=== PATIENT | female | born 1955 | race Caucasian/White ===

== ENCOUNTER 2019-04-03 22:19 | Emergency (ER) | payer OTHER ==
--- NOTE | 2019-04-03 22:27 | ED Physician Documentation ---
Sore Throat/Dental Pain - HISTORIAN Historian: patient - HPI Stated Complaint: sore throat Chief Complaint: Sore Throat Onset: days ago (2) Context: Possible Infection Associated Symptoms: sore throat, moderate. denies: fever, chills, unable to swallow, runny nose, congestion, R ear pain, L ear pain, cough, swollen glands Worsened By: denies: heat, cold Further Comments: yes (SHe has had a sore throat for two days. She has not tried any OTC meds. No other complaints. NO sick contacts . No fever) - ROS CONST: no problems CVS/RESP: none GI/: denies: nausea, vomiting NEURO/PSYCH: none - PAST HX Past History: none Other History: diabetes Type 2 Immunizations: UTD - SOCIAL HX Smoking History: non-smoker Alcohol Use: none Drug Use: none - FAMILY HX Family History: No - REVIEWED ASSESSMENTS Nursing Assessment Reviewed: Yes Vitals Reviewed: Yes Sore throat Physical Exam - EXAM General Appearance: no acute distress, alert Head/Neck: head nml inspection. No: pain over sinuses Eyes: eyes nml inspection Mouth/Throat: lips nml, gums nml, pharynx nml, voice nml, no drooling, no air way problems Respiratory: no resp. distress, breath sounds nml CVS: reg. rate & rhythm Abdomen: soft, normal bowel sounds, no distension, non-tender Extremities: non-tender Skin: warm/dry, normal color Neuro/Psych: oriented x3 Discharge Clincal Impression: Sore throat Referrals: Primary Doctor,No [REFERRING] - 2 Days Comments: 1. OTC meds as directed as needed for symptom relief 2. Warm salt water gargles 3. Follow up with PCP Saturday for any continued concerns 4. Return to ER for any increasing concerns Condition: Stable Decision to Admit: NO Date of Decison to Admit: 04/03/19 Decision Time: 22:51
[2019-04-03 23:42] VITALS: BP 147/93
== END 2019-04-03 23:10 ==
LOC: ED 22:19
DX: J02.9 Acute pharyngitis, unspecified (principal)
CPT/HCPCS: 87880; 99282; 99283